=== PATIENT | male | born 1980 | race African-American/Black ===

== ENCOUNTER 2017-02-21 12:51 | Emergency (ER) | payer OTHER ==
[~2017-02-21 12:51] MED LIST: BENZONATATE200 M1 PO; ELIQUIS5 MG PO; PERCOCET 325 MG1 TA2 PO; PERCOCET 5-3251 EACH PO; PROAIR HFA0.09 MG/Ac INH; RISPERIDONE1 MG PO; TRAZODONE HCL50 M1 PO; ULTRAM50 M1 PO; VENTOLIN HFA18 GM INH; WELLBUTRIN XL300 MG PO
[2017-02-21 13:04] VITALS: BP 145/83
--- NOTE | 2017-02-21 13:24 | ED GI/GU/ABDOMINAL COMPLAINT ---
History of Present Illness General Chief Complaint: Male Genitourinary Problems Stated Complaint: "I WANT TO GET CHECKED FOR A STD" ?TRICOMONIASIS Source: patient Exam Limitations: no limitations Vital Signs & Intake/Output Vital Signs & Intake/Output Vital Signs Date Time Temp Pulse Resp B/P B/P Pulse O2 O2 Flow FiO2 Mean Ox Delivery Rate 02/21 1304 97.3 78 20 145/83 98 Allergies Coded Allergies: lactose (LACTOSE INTOLERANT 03/12/16) Reconcile Medications Albuterol Sulfate (Proair Hfa) 0.09 MG/Actuation MARIANGEL 2 PUFF INH PRN ASTHMA ( Reported) Albuterol Sulfate (Ventolin Hfa) 18 GM HFA.AER.AD 2 PUF INH Q4-6 PRN PRN WHEEZING/SHORTNESS OF BREATH Apixaban (Eliquis) 5 MG TAB 1 TAB PO BID DVT/PULMONARY EMBOLISM Please start taking this dose from 07/10/2015 Benzonatate 200 MG CAPSULE 1 CAP PO TID PRN cough Metronidazole (Flagyl) 500 MG TABLET 4 TAB PO ONCE TRICHOMONAS Oxycodone HCl/Acetaminophen (Percocet 5-325 MG Tablet) 1 EACH TABLET 1 TAB PO Q6H PRN PAIN Risperidone 1 MG TAB 1 TAB PO QPM MENTAL HEALTH (Reported) Tramadol HCl (Ultram) 50 MG TABLET 1-2 TAB PO Q6P PRN PAIN Trazodone HCl 50 MG TABLET 0.5 TAB PO QPM SLEEP (Reported) Triage Note: PER PT INFORMED FROM SIGNIFICANT OTHER TO GET CHECKED FOR TRICH, PT WITHOUT S/S Triage Nurses Notes Reviewed? yes Onset: Abrupt Duration: day(s):, constant Timing: recent history No Modifying Factors: none HPI: 36-year-old male comes into emergency room for Trichomonas exposure. He denies any burning with urination or increased frequency. History of previous gonorrhea and chlamydia. History of herpes. He reports that his partner told him that she was positive for Trichomonas. He denies any other system symptoms currently. Patient comes here for treatment. He reports that he had an alcoholic beverage prior. (KAYLYNN LUGO) Past History Travel History Traveled to [place] past 21 day No Medical History Any Pertinent Medical History? see below for history Neurological: NONE EENT: NONE Cardiovascular: NONE, PE Respiratory: ASTHMA,PE Gastrointestinal: COLOSTOMY/REVERSED Hepatic: NONE Renal: NONE Musculoskeletal: fracture Psychiatric: NONE Endocrine: NONE Blood Disorders: NONE Cancer(s): NONE PAEDIATRICIAN/Reproductive: NONE History of MRSA: No History of VRE: No History of CDIFF: No Surgical History Surgical History: Colostomy since , no recent hx. Psychosocial History Who do you live with Spouse What is your primary language Yi Tobacco Use: Current Daily Use Daily Tobacco Use Amount/Type: => 5 Cigarettes daily Family History Hx Contributory? No (KAYLYNN LUGO) Review of Systems Review of Systems Constitutional: Reports: no symptoms. EENTM: Reports: no symptoms. Respiratory: Reports: no symptoms. Cardiovascular: Reports: no symptoms. GI: Reports: no symptoms. Genitourinary: Reports: see HPI. Musculoskeletal: Reports: no symptoms. Skin: Reports: no symptoms. Neurological/Psychological: Reports: no symptoms. Hematologic/Endocrine: Reports: no symptoms. Immunologic/Allergic: Reports: no symptoms. All Other Systems: Reviewed and Negative (KAYLYNN LUGO) Physical Exam Physical Exam General Appearance: well developed/nourished, no apparent distress, alert, awake , CLINICALLY SOBER Head: atraumatic Eyes: Bilateral: normal appearance. Ears, Nose, Throat, Mouth: hearing grossly normal, moist mucous membrane Neck: normal inspection Respiratory: normal breath sounds, no respiratory distress Cardiovascular: regular rate/rhythm Gastrointestinal: soft Male Genitals: normal genitalia, TINY SMALL ABRASION AT BASE OF SHAFT OF PENIS Back: normal inspection Extremities: normal range of motion Neurologic/Psych: awake, alert, oriented x 3, normal gait Skin: intact, normal color Core Measures ACS in differential dx? No Severe Sepsis Present: No Septic Shock Present: No (KAYLYNN LUGO) Progress Differential Diagnosis: GONORRHEA, CHLAMYDIA, HERPES, SYPHILIS, hiv,ALCOHOLIC GASTRITIS, PANCREATITIS, Plan of Care: Orders Procedure Date/time Status Add-on Test (ER Only) 02/21 1326 Active CHLAMYDIA-GC DNA PROBE 02/21 1312 Active URINALYSIS 02/21 1305 Complete Current Medications Sig/Jose A Start time Last Medication Dose Stop Time Status Admin Metronidazole 2,000 MG ONCE ONE 02/21 1330 CAN (Flagyl) 02/21 1331 Laboratory Tests 02/21/17 1313: Urinalysis LIGHT H, Urine Color YEL, Urine Clarity CLEAR, Urine pH 6.0, Ur Specific [place] <= 1.005, Urine Protein NEG, Urine Ketones NEG, Urine Nitrite NEG, Urine Bilirubin NEG, Urine Urobilinogen 0.2, Ur Leukocyte Esterase NEG, Ur Microscopic SEDIMENT EXAMINED, Urine RBC 1-3, Urine WBC RARE, Ur Epithelial Cells RARE, Urine Mucus FEW, Urine Hemoglobin TRACE-INTACT H, Urine Glucose NEG 02/21/17 1312: T. vaginalis (PCR) Pending Microbiology 02/21 1318 GENITAL: Trichomonas Preparation - CAN Cancelled: SEND OUT 02/21 1313 URINE ROUT: GC DNA Probe - RECD 02/21 1313 URINE ROUT: Chlamydia DNA Probe (FERNANDA) - RECD Initial ED EKG: none Comments: 02/21/2017 1:42:08 PM patient is clinically sober and does not appear to be intoxicated. He is not driving. Due to the fact that he had an alcoholic beverage prior to coming Flagyl prescription was sent to the pharmacy. Patient was instructed to take this later tonight before bed. Patient was instructed to not drink any alcohol taken this medication. After the patient was getting ready to be discharged she reported that he was experiencing some abdominal pain recently for many weeks as well as some intermittent vomiting. I explained to the patient that we should do a further evaluation with blood work and possible diagnostic imaging. Patient denied wanting to stay for any further evaluation and reports that he will follow-up with his regular doctor as needed. I explained to the patient I cannot rule out any type of life-threatening conditions without further workup. Patient does not want to stay any further. Patient just wants to leave. Patient will follow up as an outpatient and told to return if any concerns worsening symptoms. He understands and agrees with plan of care at this time. No sexual activity for the next 5 days. (KAYLYNN LUGO) Departure Departure Disposition: HOME OR SELF CARE Condition: Stable Clinical Impression Primary Impression: Trichomonas exposure Referrals: PATIENT HAS NO PRIMARY CARE DR (PCP/Family) Additional Instructions: Do not engage in any sexual activity for the next 5 days. Do not drink any alcohol for the next 48 hours. You will vomit if you drink alcohol with the medications received in the emergency room. Please go over all results of today's visit with your primary care doctor. Contact your primary care doctor to let them know you were here in the emergency room. There may be nonspecific findings which may not be related to your visit today here in the emergency room but may require further evaluation and chronic monitoring by your primary care doctor. If you had a laceration today the chance of foreign body always remains. You should follow-up with your primary care doctor for recheck in 3-5 days for a wound check. If you had an x-ray done there is a chance that a fracture could have been missed on initial read and you should follow-up with your primary care doctor for repeat x-rays if symptoms persist. If your blood pressure was elevated here in the emergency room please have rechecked by her primary care doctor within the next 48 hours by your primary care doctor. If you were prescribed a narcotic here in the emergency room or any type of controlled substances you're not allowed to drive while taking this medication or operate any type of heavy machinery. Narcotics can make you feel lightheaded dizziness nausea and can cause constipation. You may need to parts picker a stool softener. Thank you for choosing [facility] emergency room. Please return to the emergency room immediately if you have any other concerns worsening of symptoms. Departure Forms: Customer Survey General Discharge Information Prescriptions: Current Visit Scripts Metronidazole (Flagyl) 4 TAB PO ONCE #4 TAB (KAYLYNN LUGO) PA/LINER INSTALLER Co-Sign Statement Statement: ED Attending supervision documentation- [] I saw and evaluated the patient. I have also reviewed all the pertinent lab results and diagnostic results. I agree with the findings and the plan of care as documented in the PA's/LINER INSTALLER's documentation. [X] I have reviewed the ED Record and agree with the PA's/LINER INSTALLER's documentation. [] Additions or exceptions (if any) to the PAs/LINER INSTALLER's note and plan are summarized below: [] (TIMOTHY PINEDA DO)
[2017-02-21] MEDS ORDERED: FLAGYL500 MG PO (13:35)
== END 2017-02-21 14:03 ==
LOC: ERH 12:51
DX: Z20.2 Contact with and (suspected) exposure to infections with a predominantly sexual mode of transmission (principal)
CPT/HCPCS: 87661; 81001; 87491; 87591; J0696